=== PATIENT | female | born 1940 | race Caucasian/White ===

== ENCOUNTER → 2018-12-04 | Outpatient (CLI) | payer MEDICARE ==
--- NOTE | 2018-12-04 15:29 | XR ---
Right hip and right femur, AP pelvis HISTORY: Pain, I 48.9, I10, C 18.6 2 views of the right femur on 4 images, 2 views of the right hip, 2 views of the pelvis submitted. No comparisons Atherosclerotic vascular calcifications are noted along the right thigh. There is some loss of joint space in the right and left hip. Some remodeling present at the right femoral head laterally could be due to femoral acetabular impingement, hypertrophic changes present at the acetabulum greater on the left than on the right. Bone mineralization is maintained. No fracture or dislocation. Degenerative disc changes are noted in the lower lumbar spine. Arthropathy noted in the right knee. IMPRESSION: Degenerative disc disease lumbar spine. Correlate for possible femoral acetabular impinge ment. Mild osteoarthritic changes.
== END | disposition home or self-care (01) ==
LOC: RADXRMAIN 14:46
PROVIDERS: ATTEND Internal Medicine Hematology & Oncology
DX: C18.6 Malignant neoplasm of descending colon (principal); I10 Essential (primary) hypertension; I48.91 Unspecified atrial fibrillation; M16.11 Unilateral primary osteoarthritis, right hip
CPT/HCPCS: 72170; 73502